=== PATIENT | male | born 1995 | race Caucasian/White ===

== ENCOUNTER → 2017-06-23 | Outpatient (CLI) | payer BC, OTHER | END | disposition home or self-care (01) | LOC: C.RDSM 12:48 | PROVIDERS: ATTEND Orthopaedic Surgery | DX: M25.561 Pain in right knee (principal) ==

== ENCOUNTER → 2017-06-28 | Outpatient (CLI) | payer OTHER ==
--- NOTE | 2017-06-28 23:27 | DIAGNOSTIC IMAGING REPORT ---
MRI OF THE RIGHT KNEE WITHOUT CONTRAST CLINICAL HISTORY: R HAMSTRING/STRAIN/THIGH,KNEE PAIN. COMPARISON STUDY: Right knee radiographs June 23, 2017. TECHNIQUE: Utilizing a 1.5 Sonya magnet and dedicated coil, multiplanar, multiecho imaging of the right knee was performed without intravenous or intraarticular contrast. The right thigh MRI will be reported separately. FINDINGS: Alignment of the right knee is anatomic. Extensor mechanism is intact. There is no joint effusion. No significant cartilage abnormality is present. The anterior and posterior cruciate ligaments are intact. The medial collateral ligament and lateral collateral ligament complex are also intact. No medial or lateral meniscal tear is present. No mass or fluid collection shown adjacent to the right knee. No osteochondral abnormality is present. Intramuscular edema within the distal aspect of the long head of the biceps femoris muscle is better depicted on the MRI of the right thigh. IMPRESSION: 1. No internal derangement of the right knee. 2. Intramuscular edema and small associated fluid collection within the distal aspect of the long head of the biceps femoris muscle consistent with a muscle strain which is better depicted on the MRI of the right thigh. Please see that report for further description. Electronically signed by: Edgar Mina M.D. 06/28/2017 11:26 PM Dictated Date/Time: 06/28/2017 9:41 PM
--- NOTE | 2017-06-28 23:28 | DIAGNOSTIC IMAGING REPORT ---
MRI OF THE RIGHT THIGH WITHOUT CONTRAST CLINICAL HISTORY: R HAMSTRING/STRAIN/THIGH,KNEE PAIN. COMPARISON STUDY: No previous studies for comparison. TECHNIQUE: Utilizing a 1.5 Sonya magnet and dedicated coil, multiplanar, multiecho imaging of the right thigh was performed without IV contrast. FINDINGS: The origin of the right hamstrings is intact. There is moderate intramuscular edema with an associated small adjacent fluid collection within the distal aspect of the long head of the biceps femoris muscle consistent with a muscular strain which is likely grade II in degree. This is near the myotendinous junction. A portion of the muscle and intramuscular tendon may be disrupted. The short head of the biceps femoris is intact. The remainder of the right hamstrings is also intact. There is no evidence for fracture within the right femur. No abnormalities identified within visualized portions of the right hemipelvis. The right knee is better depicted on the dedicated right knee MRI. Please see that report for further description. IMPRESSION: Moderate intramuscular edema with small adjacent fluid collection within the distal aspect of the long head of the biceps femoris muscle near the myotendinous junction consistent with a muscular strain/tear, likely grade II. Electronically signed by: Edgar Mina M.D. 06/28/2017 11:27 PM Dictated Date/Time: 06/28/2017 11:13 PM
== END | disposition home or self-care (01) ==
LOC: C.MRI 19:29
PROVIDERS: ATTEND Orthopaedic Surgery
DX: S76.311A Strain of muscle, fascia and tendon of the posterior muscle group at thigh level, right thigh, initial encounter (principal); X58.XXXA Exposure to other specified factors, initial encounter